=== PATIENT | female | born 1975 | race Caucasian/White ===

== ENCOUNTER → 2018-01-21 | Outpatient (CLI) | payer BC ==
--- NOTE | 2018-01-23 10:38 | MM ---
Reason for exam: screening (asymptomatic). Last mammogram was performed 1 year and 11 months ago. History: Implants in both breasts, 2004. Taking hormonal contraceptives for 1 year 6 months beginning at age 39. Physical Findings: A clinical breast exam by your physician is recommended on an annual basis and results should be correlated with mammographic findings. MG Screening Mammo Implant/CAD Bilateral CC, MLO, and ID view(s) were taken. Prior study comparison: February 16, 2016, bilateral MG diag mamm implants TERE w CAD. The breast tissue is extremely dense which could obscure a lesion on mammography. No suspicious abnormality. Stable right anterior upper outer quadrant focal asymmetry. No significant changes when compared with prior studies. ASSESSMENT: Benign, BI-RAD 2 RECOMMENDATION: Routine screening mammogram of both breasts in 1 year.
== END | disposition home or self-care (01) ==
LOC: RADMAMWWP 08:15
PROVIDERS: ATTEND Obstetrics & Gynecology
DX: Z12.31 Encounter for screening mammogram for malignant neoplasm of breast (principal); Z13.220 Encounter for screening for lipoid disorders; Z13.228 Encounter for screening for other metabolic disorders
CPT/HCPCS: 36415; 77067; 80061; 84443

== ENCOUNTER 2018-03-26 20:43 | Emergency (ER) | payer BC ==
[2018-03-26 20:52] VITALS: RESP 18
[2018-03-26] MEDS ORDERED: methylPREDNISolone SOD SUCCI 125 MG/2 ML VIAL IV STA (20:57)
[2018-03-26] MEDS ORDERED: SODIUM CHLORIDE 0.9% 1,000 ML IV STA (20:57)
[2018-03-26] MEDS ORDERED: FAMOTIDINE 20 MG/2 ML VIAL IV STA (20:57)
--- NOTE | 2018-03-26 21:05 | ED ---
General Adult HPI - General Chief complaint: Allergic Reaction Stated complaint: Alergic reaction Time Seen by Provider: 03/26/18 20:48 Source: patient, EMS, RN notes reviewed Mode of arrival: EMS Limitations: no limitations - History of Present Illness Initial comments: Patient is a pleasant 42-year-old female presenting to the emergency department following bee sting. Patient was trimming hedges and was stung by bees approximately 5-6 times in her hands. Following this patient did have swelling of her face and diffuse rash. Patient states her tongue was somewhat swollen as well. Patient feels like there is a lump in the back of her throat. Patient did not feel short of breath. No history of problems with bee stings previously. Patient did receive Benadryl and epinephrine injection twice by EMS. Patient states this greatly improved her symptoms. Patient states she did have diffuse rash described as hives that has essentially resolved. Patient states swelling has improved. Patient no longer has swelling of her tongue or throat. - Related Data Home Medications Medication Instructions Recorded Confirmed Albuterol Inhaler [Ventolin Hfa 1 - 2 puff INHALATION RT-Q6H PRN 04/18/16 Inhaler] Biotin 5 mg PO DAILY 03/26/18 03/26/18 Cetirizine HCl [Zyrtec] 10 mg PO DAILY PRN 03/26/18 03/26/18 Ketotifen Fumarate [Zaditor] 1 drop BOTH EYES DAILY PRN 03/26/18 03/26/18 Multivitamins, Thera [Multivitamin 1 tab PO DAILY 03/26/18 03/26/18 (formulary)] diphenhydrAMINE [Benadryl] 50 mg PO HS PRN 03/26/18 03/26/18 Previous Rx's Medication Instructions Recorded EPINEPHrine (Auto Inject) [Epipen] 0.3 mg IM ONCE PRN #2 syringe 03/26/18 predniSONE 20 mg PO BID #10 tab 03/26/18 Allergies Allergy/AdvReac Type Severity Reaction Status Date / Time bee venom protein (honey bee) Allergy Swelling Verified 03/26/18 21:17 Review of Systems ROS Statement: Those systems with pertinent positive or pertinent negative responses have been documented in the HPI. ROS Other: All systems not noted in ROS Statement are negative. Constitutional: Denies: fever Eyes: Denies: eye pain ENT: Denies: ear pain Respiratory: Denies: cough, dyspnea Cardiovascular: Denies: chest pain Endocrine: Denies: fatigue Gastrointestinal: Denies: abdominal pain Genitourinary: Denies: dysuria Musculoskeletal: Denies: back pain Skin: Reports: rash (Resolved) Neurological: Denies: weakness Past Medical History History of Any Multi-Drug Resistant Organisms: None Reported Past Surgical History: Back Surgery Past Psychological History: No Psychological Hx Reported Smoking Status: Never smoker Past Alcohol Use History: Occasional Past Drug Use History: None Reported General Exam Limitations: no limitations General appearance: alert, in no apparent distress Head exam: Present: atraumatic Eye exam: Present: periorbital swelling ENT exam: Present: other (Mild swelling of the upper lip. No angioedema of the tongue or pharynx) Neck exam: Present: normal inspection Respiratory exam: Present: normal lung sounds bilaterally Cardiovascular Exam: Present: regular rate, normal rhythm GI/Abdominal exam: Present: soft. Absent: tenderness Extremities exam: Present: normal inspection Neurological exam: Present: alert Psychiatric exam: Present: normal affect, normal mood Skin exam: Present: other (Minimal erythema of the arms) Course Vital Signs 03/26/18 03/26/18 20:46 21:25 Temperature 98.9 F Pulse Rate 92 93 Respiratory 18 18 Rate Blood Pressure 120/68 97/55 O2 Sat by Pulse 97 98 Oximetry Medical Decision Making - Medical Decision Making Patient reevaluated and further improved. Edema of the upper lip and periorbital is now minimal. Patient denies any throat swelling or dyspnea. Disposition Clinical Impression: Angioedema Disposition: HOME SELF-CARE Condition: Stable Instructions: Insect Bite or Sting (ED), Anaphylaxis (ED), Allergies (ED) Additional Instructions: Please follow-up with the primary care physician in the next couple days for recheck. Return for increased swelling, especially of the throat or tongue. Also return for difficulty breathing or worsening symptoms. Continue Zyrtec for at least the next 5 days. If symptoms do not seem to improve with Zyrtec, then change to Benadryl. Prescriptions: EPINEPHrine (Auto Inject) [Epipen] 0.3 mg IM ONCE PRN #2 syringe PRN Reason: Anaphylaxis predniSONE 20 mg PO BID #10 tab Is patient prescribed a controlled substance at d/c from ED?: No Referrals: Judd Cox DO [Primary Care Provider] - 1-2 days Time of Disposition: 21:58
[2018-03-26 22:00] VITALS: BP 103/59; PULSE 84
[2018-03-26 22:16] VITALS: TEMP 98.1
== END 2018-03-26 22:17 | disposition home or self-care (01) ==
LOC: EC 20:43
DX: T78.3XXA Angioneurotic edema, initial encounter (principal); T63.441A Toxic effect of venom of bees, accidental (unintentional), initial encounter; Z91.018 Allergy to other foods
CPT/HCPCS: 99284; 96374; 96375; 96361; J2930

== ENCOUNTER → 2018-06-27 | Day surgery (SDC) | payer BC ==
[2018-06-27 10:48] VITALS: RESP 16; BMI 26.1
--- NOTE | 2018-06-27 12:52 | USB ---
EXAMINATION TYPE: US biopsy breast VAD RT, MG diag mamm implant RT w CAD DATE OF EXAM: 06/27/2018 CLINICAL HISTORY: R92.8 ABN MAMMO. TECHNIQUE: Ultrasound guided core biopsy of right breast. COMPARISON: 06/10/2018 FINDINGS: The procedure of ultrasound guided core biopsy was explained to the patient. Benefits, alternatives, and risks were discussed. An informed consent was then obtained. Preprocedural timeout was performed. Preprocedural scanning demonstrates dilated ducts, the previously seen 6 x 8 x 4 mm mass at the 10:00 position in zone A, as well as directly adjacent subcentimeter similar -appearing clustered masses such as on preprocedural image 6/9. There are 3 small masses measuring 3 mm each. The patient was placed in supine positioning for imaging and for the procedure. The overlying skin was prepped and draped in usual sterile fashion. Lidocaine buffered with bicarbonate was used as anesthetic into the skin and subcutaneous tissue up to 6 x 8 x 4 mm mass at the clip position in zone A. A dominique was made with surgical scalpel. Under ultrasound guidance, a 14-gauge vacuum assisted biopsy gun device was used to obtain 4 core samples. Following this, a coil shaped biopsy marker was left in lesion. Given the proximity of the 3 mm masses and gauge of the vacuum assisted biopsy gun some of each of these masses were obtained and a sample. Postprocedural mammogram demonstrates appropriate placement of the coil-shaped biopsy marker. The patient tolerated the procedure well without any immediate complication. The patient was kept in the radiology department for short stay after the procedure and then discharged home in stable condition. IMPRESSION: Successful, uncomplicated ultrasound guided core biopsy of the clustered 3 mm masses at the 10:00 position in zone A of the right breast directly adjacent to dilated ducts is a suspicion for a papillomas, full pathology results to follow. Pathology Results: Benign RIGHT BREAST, 10:00, ULTRASOUND GUIDED CORE BIOPSY: Fibrocystic changes including cysts, fibrosis, apocrine metaplasia and inflammation. Focal pseudoadenomatous stromal hyperplasia (PASH). Recommendation Follow up ultrasound of the right breast in 6 months. [place]
[2018-06-27 12:53] VITALS: BP 124/77; PULSE 75; TEMP 98.5
== END | disposition home or self-care (01) ==
LOC: RADUSWWP 10:26
PROVIDERS: ATTEND Surgery
DX: N60.31 Fibrosclerosis of right breast (principal); N60.01 Solitary cyst of right breast; N60.81 Other benign mammary dysplasias of right breast; N62 Hypertrophy of breast; Z91.030 Bee allergy status
CPT/HCPCS: 88305; 77065; 19083; A4648; J2001

== ENCOUNTER → 2018-09-19 | Outpatient (CLI) | payer BC ==
[2018-09-19 09:39] LABS: MCH 30.9 pg (25.0-35.0); MCHC 33.3 g/dL (31.0-37.0); MCV 92.8 fL (80.0-100.0); Platelet Count 278 k/uL (150-450); RBC 4.53 m/uL (3.80-5.40); RDW 12.6 % (11.5-15.5); WBC 6.4 k/uL (3.8-10.6)
[2018-09-19 18:40] LABS: ALT 25 U/L (8-44); AST 26 U/L (13-35); Albumin/Globulin Ratio 1.75 (1.60-3.17); Alkaline Phosphatase 68 U/L (41-126); Calcium 9.1 mg/dL (8.7-10.3); Carbon Dioxide 23.6 mmol/L (21.6-31.8); Chloride 108 mmol/L (96-109); Cholesterol 143 mg/dL (0-200); Globulin 2.4 g/dL (1.6-3.3); Glucose 98 mg/dL (70-110); Potassium 4.4 mmol/L (3.5-5.5); Sodium 140 mmol/L (135-145); Total Bilirubin 0.4 mg/dL (0.2-1.2); Total Protein 6.6 g/dL (6.2-8.2); Triglycerides <50.0 mg/dL (0.0-149.0); VLDL Calculation 9.98 mg/dL (5.00-40.00)
== END ==
LOC: LABWHC1 09:05
PROVIDERS: ATTEND Family Medicine
DX: Z00.00 Encounter for general adult medical examination without abnormal findings (principal)
CPT/HCPCS: 36415; 80053; 80061; 85027

== ENCOUNTER → 2019-07-03 | Outpatient (CLI) | payer BC ==
--- NOTE | 2019-07-06 10:26 | MM ---
Reason for exam: additional evaluation requested from prior study. Last mammogram was performed 1 year ago. History: Family history of breast cancer in mother and breast cancer in paternal grandmother at age 55. Excisional biopsy of the right breast, July 2018. Benign US biopsy breast VAD RT of the right breast, June 27, 2018. Implants in both breasts, 2004. Took hormonal contraceptives for 24 years beginning at age 15. Physical Findings: Nurse did not find any significant physical abnormalities on exam. MG 3D Diag Mammo Imp W/Cad TERE Bilateral CC and MLO view(s) were taken. Prior study comparison: June 27, 2018, right breast MG diag mamm implant RT w CAD. June 18, 2018, right breast MG 3d diag mammo imp w/cad RT. The breast tissue is heterogeneously dense. This may lower the sensitivity of mammography. Previous mammotome biopsy in the right breast. No significant new findings when compared with previous films. These results were verbally communicated with the patient and result sheet given to the patient on 07/03/19. ASSESSMENT: Benign, BI-RAD 2 RECOMMENDATION: Routine screening mammogram of both breasts in 1 year. Manage patient on a clinical basis.
== END | disposition home or self-care (01) ==
LOC: RADMAMWWP 15:39
PROVIDERS: ATTEND Surgery
DX: N63.10 Unspecified lump in the right breast, unspecified quadrant (principal); N63.20 Unspecified lump in the left breast, unspecified quadrant
CPT/HCPCS: 77062; 77066

== ENCOUNTER → 2020-11-16 | Outpatient (CLI) | payer BC ==
--- NOTE | 2020-11-16 12:02 | MM ---
Reason for exam: clinical finding. Last mammogram was performed 1 year and 4 months ago. History: Family history of breast cancer in mother at age 64, breast cancer in paternal grandmother at age 50, breast cancer in paternal aunt at age 30, and breast cancer in maternal grandmother at age 55. Excisional biopsy of the right breast, July 2018. Benign US biopsy breast VAD RT of the right breast, June 27, 2018. Implants in both breasts, 2004. Took hormonal contraceptives for 24 years beginning at age 15. Indicated problem(s): non-bloody discharge in the right breast. Physical Findings: Nurse did not find any significant physical abnormalities on exam. MG 3D Diag Mammo Imp W/Cad TERE Bilateral CC, MLO, and ID view(s) were taken. Prior study comparison: July 03, 2019, bilateral MG 3d diag mammo imp w/cad TERE. June 27, 2018, right breast MG diag mamm implant RT w CAD. The breast tissue is heterogeneously dense. This may lower the sensitivity of mammography. No suspicious calcifications are seen. Previous mammotome biopsy in the right breast. No significant new findings when compared with previous films. These results were verbally communicated with the patient and result sheet given to the patient on 11/16/20. ASSESSMENT: Incomplete: need additional imaging evaluation, BI-RAD 0 RECOMMENDATION: Ultrasound of the right breast. Manage patient on a clinical basis.
--- NOTE | 2020-11-16 12:04 | USB ---
Reason for exam: additional evaluation requested from abnormal screening. History: Family history of breast cancer in mother at age 64, breast cancer in paternal grandmother at age 50, breast cancer in paternal aunt at age 30, and breast cancer in maternal grandmother at age 55. Excisional biopsy of the right breast, July 2018. Benign US biopsy breast VAD RT of the right breast, June 27, 2018. Implants in both breasts, 2004. Took hormonal contraceptives for 24 years beginning at age 15. US Breast RT Right complete breast ultrasound includes all four quadrants, the retroareolar region and axilla. Finding demonstrates a 0.4 x 0.4 x 0.4cm focal, hypoechoic lesion within duct at the posterior nipple, biopsy recommended. These results were verbally communicated with the patient and result sheet given to the patient on 11/16/20. ASSESSMENT: Suspicious, BI-RAD 4 RECOMMENDATION: Ultrasound core biopsy of the right breast. Called Dr. Vieyra's office with mammographic findings. Biopsy scheduled for 11/23/20 at 1:00. PRELIMINARY REPORT CALLED AND FAXED TO DR. VIEYRA ON 11/16/20.
== END | disposition home or self-care (01) ==
LOC: RADMAMWWP 07:37
PROVIDERS: ATTEND Family Medicine
DX: N64.52 Nipple discharge (principal)
CPT/HCPCS: 77062; 77066

== ENCOUNTER → 2020-11-23 | Day surgery (SDC) | payer BC ==
[2020-11-23 12:17] VITALS: RESP 16
[2020-11-23 14:04] VITALS: BP 111/73; PULSE 72; TEMP 98.5
--- NOTE | 2020-11-23 14:07 | USB ---
EXAMINATION TYPE: US biopsy breast VAD RT, MG diagnostic mammo RT wo CAD DATE OF EXAM: 11/23/2020 CLINICAL HISTORY: R92.8 Abnormal mammogram. TECHNIQUE: Ultrasound guided core biopsy of right breast. COMPARISON: NONE FINDINGS: The procedure of ultrasound guided core biopsy was explained to the patient. Benefits, alt ernatives, and risks were discussed. An informed consent was then obtained. The patient was placed in supine positioning for imaging and for the procedure. The overlying skin w as prepped and draped in usual sterile fashion. Lidocaine buffered with bicarbonate was used as anes thetic into the skin and subcutaneous tissue up to area of concern in the right breast. A dominique was m reginaldo with surgical scalpel. Under ultrasound guidance, a 12-gauge vacuum assisted biopsy gun device was used to obtain 3 core madeleine ples. Following this, a biopsy clip was left in lesion. The patient tolerated the procedure well without any immediate complication. The patient was kept in the radiology department for short stay after the procedure and then discharged home in stable condi tion. IMPRESSION: Successful, uncomplicated ultrasound guided core biopsy of area of concern in the breast, full pathology results to follow.
== END ==
LOC: RADUSWWP 12:00
PROVIDERS: ATTEND Family Medicine
DX: D24.1 Benign neoplasm of right breast (principal); N62 Hypertrophy of breast
CPT/HCPCS: 88305; 77065; 19083; A4648; J2001

== ENCOUNTER 2022-04-09 05:55 | Day surgery (SDC) | payer BC ==
--- NOTE | 2022-04-06 07:16 | P.HPOB ---
History of Present Illness H&P Date: 04/06/22 Chief Complaint: Menorrhagia and pelvic pain with left ovarian cyst. This patient is a pleasant 46-year-old 2 para 2 female who initially presented to me with complaints of heavy vaginal bleeding. Patient also had some postcoital bleeding as well. Pap smear was normal and transvaginal ultrasound was ordered which showed the uterus to be normal but she did have a multicystic area of the left ovary. Left ovary had 2 cysts measuring 5.5 x 5.8 cm. Repeat ultrasound showed the cyst to be slightly smaller 5.3 x 5.2 however the patient continues to have pain and wishes to have a laparoscopy for drainage and evaluation. Patient also requested an endometrial ablation. Review of Systems Genitourinary: Reports as per HPI, Reports menorrhagia, Reports pelvic pain Past Medical History Past Medical History: Asthma, Skin Disorder Additional Past Medical History / Comment(s): exercise induced asthma, ovarian cyst, heavy periods, wore heart event monitor recently due to palpitations @times, psoriasis History of Any Multi-Drug Resistant Organisms: None Reported Past Surgical History: Adenoidectomy, Back Surgery, Breast Surgery Additional Past Surgical History / Comment(s): spinal fusion c5-c6 in 2016; breast augmentation 2002; adenoidectomy in 1993; breast surgery right breast x2 2019 for papillomas, abd. skin lift w/breast augmentation; LEEP of the cervix 2015 Past Anesthesia/Blood Transfusion Reactions: Previous Problems w/ Anesthesia Additional Past Anesthesia/Blood Transfusion Reaction / Comment(s): experiences "tremors and really, really bad shaking after general...they usually have to give me something for it in my IV, I think it's Ativan" Past Psychological History: No Psychological Hx Reported Smoking Status: Former smoker Past Alcohol Use History: None Reported Past Drug Use History: None Reported - Past Family History Father Additional Family Medical History / Comment(s): pt's paternal grandmother dx with Breast Cancer at age 55-60 Medications and Allergies Home Medications Medication Instructions Recorded Confirmed Type Albuterol Inhaler [Ventolin Hfa 1 - 2 puff INHALATION RT-Q6H PRN 04/18/16 04/05/22 History Inhaler] Cetirizine HCl [Zyrtec] 10 mg PO DAILY 03/26/18 04/05/22 History EPINEPHrine (Auto Inject) [Epipen] 0.3 mg IM ONCE PRN #2 syringe 03/26/18 04/05/22 Rx Enstilar Foam TOPICAL DAILY 04/05/22 History Allergies Allergy/AdvReac Type Severity Reaction Status Date / Time bee venom protein (honey bee) Allergy Swelling Verified 04/05/22 16:48 Exam Intake and Output 04/05/22 04/06/22 04/06/22 22:59 06:59 14:59 Other: Weight 97.522 kg - OBG Physical Exam Abdomen: bowel sounds normal, no diffuse tenderness, no bruit present, no guardi ng noted, no hepatomegaly, no splenomegaly, no mass Vagina: normal moisture, no discharge Cervix: no lesion, no discharge Uterus: normal size, normal contour Results Transvaginal ultrasound shows the uterus to be normal with an endometrium 11 mm. The right ovaries appears normal. The left ovary was enlarged with a 5.3 x 5.2 cm area of cyst possible endometrioma. Assessment and Plan (1) Menorrhagia Narrative/Plan: This is a pleasant 46-year-old 2 para 2 female with long-standing menorrhagia and also with pelvic pain and persistent left ovarian cyst. Plan is diagnostic laparoscopy with drainage of left ovarian cysts. We are also going to proceed with a hysteroscopy, D&C, and endometrial ablation with also cauterization of the endocervix for some postcoital bleeding. I discussed all of these surgeries with Chichi. She understands a laparoscopy and apparently has risks including risks of infection, bleeding, possible injury to bowel, bladder, vessels, and/or other organs requiring further surgeries. She also understands that a endometrial ablation has risks of infection, bleeding, possible uterine perforation and/or thermal injury. All the patient's questions are answered and a written consent is obtained. Status: Acute Code(s): N92.0 - EXCESSIVE AND FREQUENT MENSTRUATION WITH REGULAR CYCLE SNOMED Code(s): 063276345 (2) Pelvic pain Status: Acute Code(s): R10.2 - PELVIC AND PERINEAL PAIN SNOMED Code(s): 88558037 (3) Ovarian cyst Status: Acute Code(s): N83.209 - UNSPECIFIED OVARIAN CYST, UNSPECIFIED SIDE SNOMED Code(s): 01615550
[~2022-04-09 05:55] MED LIST: Pre Op ABX Message 1 EACH MISC MISCELLANE ONE
[2022-04-09] MEDS ORDERED: LACTATED RINGERS 1,000 ML IV SCH (06:16)
[2022-04-09] MEDS ORDERED: LIDOCAINE 1% (10MG/ML) FOR IV START INTRADERMA PRN (06:16)
[2022-04-09] MEDS ORDERED: MIDAZOLAM 2 MG/2 ML VIAL IV PRN (06:16)
[2022-04-09] MEDS ORDERED: DEXAMETHASONE SOD PHOSPHATE 4 MG/ML 1 ML VIAL IV ONE (06:16)
[2022-04-09] MEDS ORDERED: HYDROmorphone 0.5 MG/0.5 ML SYRINGE IVP PRN (06:16)
[2022-04-09] MEDS ORDERED: ONDANSETRON 4 MG/2 ML VIAL IVP ONE ×2 (06:16→09:45)
[2022-04-09] MEDS ORDERED: LIDOCAINE 2% INJ 20 MG/ML (2 ML VIAL) ONE (06:53)
[2022-04-09] MEDS ORDERED: KETOROLAC 15 MG/ML 1 ML VIAL ONE (06:53)
[2022-04-09] MEDS ORDERED: GLYCOPYRROLATE 0.2 MG/ML 2 ML VIAL ONE (06:53)
[2022-04-09] MEDS ORDERED: ROCURONIUM 10 MG/ML (5 ML VIAL) IV ONE (06:53)
[2022-04-09] MEDS ORDERED: NEOSTIGMINE 1 MG/ML 10 ML VIAL ONE (06:53)
[2022-04-09] MEDS ORDERED: MIDAZOLAM 2 MG/2 ML VIAL ONE (06:53)
[2022-04-09] MEDS ORDERED: PROPOFOL 10 MG/ML 20 ML VIAL IV ONE (06:53)
[2022-04-09] MEDS ORDERED: SUCCINYLCHOLINE CHLORIDE 200 MG/10 ML VIAL IV ONE (06:53)
[2022-04-09] MEDS ORDERED: KETAMINE 10 MG/ML 20 ML VIAL ONE (06:53)
[2022-04-09] MEDS ORDERED: fentaNYL (PF) 50 MCG/ML 2 ML AMP ONE (06:53)
[2022-04-09] MEDS ORDERED: BUPIVACAINE (PF) 0.25% 30 ML VIAL SQ ONE ×2 (07:16→07:47)
[2022-04-09 08:15] VITALS: TEMP 98.6
--- NOTE | 2022-04-09 08:23 | P.OP ---
Date of Procedure: 04/09/22 Preoperative Diagnosis: #1: Menorrhagia. #2: Pelvic pain. #3: Large left ovarian cyst #4: Postcoital bleeding Postoperative Diagnosis: Same, endometriosis. Procedure(s) Performed: #1: Diagnostic laparoscopy with drainage of left ovarian cyst. 2: Dilation and curettage. #3: Hysteroscopy. #4: NovaSure endometrial ablation. #5: Cauterization of the endocervix Anesthesia: BETO Surgeon: Keven Quiroz Estimated Blood Loss (ml): 30 Urine output (ml): 50 Pathology: other (Uterine curettings, left ovarian cystic fluid) Condition: stable Disposition: PACU Indications for Procedure: Please see dictated H&P for intimate details of this patient's admission. Brief summary is a pleasant 46-year-old 2 para 2 female whose had menorrhagia and in the process of evaluation is also found to have a 5-1/2 cm left ovarian cyst. Patient is requested endometrial ablation for treatment of her menorrhagia and serial ultrasound shows the cyst is persistent and therefore is requesting diagnostic laparoscopy with drainage of this cyst. Patient also is having some postcoital bleeding and evaluation has been negative therefore she also presents for cauterization of the endocervix. Patient understands he surgeries and risks and risks of infection, bleeding, possible injury to bowel, bladder, vessels, and/or other organs. She also understands risk of possible uterine perforation and/or thermal injury. All the patient's questions were answered and a written consent is obtained. Operative Findings: This patient had a enlarged left ovary approximately 7 cm that was somewhat fixed to the left adnexa. Large bore needle drainage revealed what appears to be endometrioma fluid. The right tube and ovary appear normal. Uterus appeared normal. The endometrial cavity appeared normal. Description of Procedure: This patient is taken to the operating room and she is laid in the supine position. She subsequent undergoes general endotracheal anesthesia without incident. With adequate level of anesthesia is placed in dorsal lithotomy position. I first good on below placed a speculum in the vagina and grabbed the anterior lip of the cervix with an Allis clamp. A large acorn cannula is then placed in the endocervix and attached to the Allis clamp. A red Mcdonald is then placed in the bladder for 50 mL of urine left in place to drain. This point we changed gloves go up above. Make a 10 mm infraumbilical incision. Using a 10 mm bladed lists optical trocar replaced the trocar directly into the peritoneal cavity. With peritoneal placement noted, pneumoperitoneum was then created to 12 mm of carbon dioxide gas. With this done proximally 2 finger breaths above the symphysis pubis and make a 5 mm incision. A 5 mm bladed lists optical trochars placed under direct visualization. A blunt probe was then used to explore the pelvis. Uterus appears normal. Right tube and ovary appear normal. Left ovary is 6 to the left pelvic sidewall and it is mostly mobile but I cannot detach it easily so therefore was left in place. I'm able to visualize the ovarian cyst. Using a large bore needle I was able to place it into the cyst and drained for 30 mL of chocolate fluid consistent with endometrioma. With all the fluid removed with suction irrigation is then used to irrigate the site. There is a little bit of bleeding at the drainage site therefore using bipolar cautery I grasped this area and cauterize it. Excellent hemostasis is noted. Further irrigation shows no further bleeding and therefore this part of the procedure is ended. The lower trochars removed good hemostasis is noted. The pneumoperitoneum was removed and the upper trocar is removed. Incisions are then closed using a 4-0 Vicryl interrupted fashion. Steri-Strips are then applied. Quarter percent Marcaine is then placed subcutaneously for postoperative pain control. Sterile dressing is applied. Then changed gloves go down below. The acorn cannula was removed and the catheter is removed. Cerv ix is dilated gently after the uterus is sounded to 8-1/2 cm. Using the hysteroscope and saline solution hysteroscopy is performed. No intrauterine growths are noted. The hysteroscope was then removed. Cervix is dilated more to allow a sharp curette easily and the uterine cavity and a thorough 4 quadrant curettage is then done. This tissue sent off separately to pathology. With this completed the NovaSure device is then opened and appears to be intact. It is set at a length of 6 cm and opens up to a width of 4.3 cm. It is then seated in place it passes the cavity integrity test. It is then enabled at 142 W setting for 68 seconds. NovaSure device is then removed. Hysteroscopy is performed again and the uterine cavity appears completely ablated up to the endocervix. With this done, the final procedure is using a Bovie cautery of 40 W setting I cauterize the entire endocervix. At this point the procedure is ended. The Allis clamp and weighted speculum removed. All counts are correct 3. There are no complications. Patient is awakened from anesthesia and taken to the recovery room in satisfactory condition.
[2022-04-09 09:42] VITALS: BP 110/66; PULSE 75; RESP 16
[2022-04-09] MEDS ORDERED: ONDANSETRON 4 MG/2 ML VIAL ONE (09:45)
== END 2022-04-09 10:13 | disposition home or self-care (01) ==
LOC: OR 05:55
PROVIDERS: ATTEND Obstetrics & Gynecology
DX: N93.0 Postcoital and contact bleeding (principal); N92.0 Excessive and frequent menstruation with regular cycle; N83.202 Unspecified ovarian cyst, left side; J45.909 Unspecified asthma, uncomplicated; J45.990 Exercise induced bronchospasm; R00.2 Palpitations; Z98.890 Other specified postprocedural states; Z90.89 Acquired absence of other organs; Z98.82 Breast implant status; Z87.891 Personal history of nicotine dependence; Z80.3 Family history of malignant neoplasm of breast; Z79.51 Long term (current) use of inhaled steroids; Z91.030 Bee allergy status
CPT/HCPCS: 49322; 58563; 57513; 81025; 88305; 88173; J2250; J0330; J1100; J2710; J2405; J3010; J1885; J2704; J1170; J2001

== ENCOUNTER → 2022-12-19 | Outpatient (CLI) | payer BC ==
--- NOTE | 2022-12-20 08:11 | MM ---
Reason for Exam: Screening (asymptomatic). Last mammogram was performed 2 year(s) and 1 month(s) ago. Patient History: Menarche at age 12. First Full-Term at age 23. Patient tested for BRCA1 outcome was negative. Hormonal Contraceptives for 24 years from age 15 until age 39. 07/2018, Excisional Biopsy on the Right side. 11/23/2020, High risk Core Biopsy on the right side. 06/27/2018, Benign Core Biopsy on the right side. 2004, Bilateral Implants. Paternal grandmother had breast cancer, age 50. Maternal grandmother had breast cancer, age 55. Paternal aunt had breast cancer, age 30. Mother had breast cancer, age 64. Risk Values: Elana 5 year model risk: 3.6%. NCI Lifetime model risk: 25.3%. Prior Study Comparison: 07/03/2019 Bilateral Diagnostic Mammogram, [facility]. 11/16/2020 Bilateral Diagnostic Mammogram, [facility]. 11/23/2020 Right Diagnostic Mammogram, [facility]. Tissue Density: The breast tissue is heterogeneously dense. This may lower the sensitivity of mammography. Findings: Analyzed By CAD. Bilateral breast implants. Implants appear intact right breast biopsy clips. There is no suspicious group of microcalcifications or new suspicious mass in either breast. Overall Assessment: Benign, BI-RAD 2 Management: Screening Mammogram of both breasts in [address] [facility] will attempt to contact patient to return for supplemental views and ultrasound if indicated. Patient should continue monthly self-breast exams. A clinical breast exam by your physician is recommended on an annual basis. This exam should not preclude additional follow-up of suspicious palpable abnormalities. Note on Elana scores and lifetime risk: 1. A Elana score greater than 3% is considered moderate risk. If this is the case, consider specialist referral to assess eligibility for a risk reducing agent. 2. If overall lifetime risk for the development of breast cancer is 20% or higher, the patient may qualify for future screening with alternating mammogram and breast MRI. Electronically signed and approved by: Hammad Menezes DO
== END | disposition home or self-care (01) ==
LOC: RADMAMWWP 14:56
PROVIDERS: ATTEND Obstetrics & Gynecology
DX: Z12.31 Encounter for screening mammogram for malignant neoplasm of breast (principal); Z80.3 Family history of malignant neoplasm of breast
CPT/HCPCS: 77067